=== PATIENT | male | born 1960 | race Caucasian/White ===

== ENCOUNTER 2023-06-29 15:41 | Emergency (ER) | payer OTHER, SELFPAY ==
--- NOTE | ~2023-06-29 | CT_ITS ---
EXAMINATION: CT CERVICAL SPINE WITHOUT CONTRAST CLINICAL INFORMATION: Fall. COMPARISON: None available. TECHNIQUE: Noncontrast CT of the cervical spine was performed. This CT examination was performed using dose optimization techniques as appropriate, variously including the following: *Automated exposure control *Adjustment of mA and/or kV according to patient size (this includes techniques or standardized protocols for targeted exams where dose is matched to indication/reason for exam; i.e. extremities or head) *Use of iterative reconstruction technique DLP: 516 mGy-cm FINDINGS: There is straightening of the cervical lordosis. Vertebral body heights are maintained. There is mild narrowing of the C5-C6 and C6-C7 intervertebral disc spaces. The facet joints are anatomically aligned. The C1-C2 relationship is anatomic. The dens is intact. There is no acute cervical spine fracture. The prevertebral soft tissue is normal in appearance. The paraspinal soft tissue is normal in appearance. The lung apices are clear. The thyroid gland is normal in appearance. CT/CT cervical spine wo IV con IMPRESSION: No acute osseous cervical spine abnormality. Fleischner guidelines were followed.
--- NOTE | ~2023-06-29 | CT_ITS ---
EXAMINATION: CT FACIAL BONES CLINICAL INFORMATION: Fall COMPARISON: None TECHNIQUE: Noncontrast CT scan axial sagittal and coronal, department standard protocol. This CT examination was performed using dose optimization techniques as appropriate, variously including the following: *Automated exposure control *Adjustment of mA and/or kV according to patient size (this includes techniques or standardized protocols for targeted exams where dose is matched to indication/reason for exam; i.e. extremities or head) *Use of iterative reconstruction technique FINDINGS : SKULL BASE: Included structures at skull base are normal. BONES: Comminuted fractures of the right and left nasal bones are mildly displaced. Nasal spine is intact., orbital bones, , maxillary bones, mandibles, zygomatic arches, and included cervical vertebrae are normal. ORBITS: Globes are symmetric. Orbital structures are normal. SALIVARY GLANDS: Unremarkable SINUSES: Clear CT/CT facial bones wo IV con IMPRESSION: Comminuted fractures of the right and left nasal bones are mildly displaced.
--- NOTE | ~2023-06-29 | XR_ITS ---
EXAMINATION: XR ELBOW, RIGHT CLINICAL INFORMATION: Right elbow pain, fall COMPARISON: None available. TECHNIQUE: AP, lateral, and oblique views of the right elbow. FINDINGS: There is a soft tissue abrasion along the posterior elbow with multiple small radiodense foreign bodies. The elbow joint space is maintained normal. No visible fracture or dislocation seen involving the distal femur, proximal radius and ulna. XR/XR elbow RT min 3V IMPRESSION: 1. Soft tissue abrasion along the posterior elbow with multiple small radiodense foreign bodies. 2. No visible acute fracture or dislocation seen.
--- NOTE | ~2023-06-29 | CT_ITS ---
EXAMINATION: CT HEAD WITHOUT CONTRAST CLINICAL INFORMATION: Fall. Nasal laceration. COMPARISON: None available. TECHNIQUE: Contiguous axial imaging was performed from the skull base to vertex without intravenous administration of contrast. This CT examination was performed using dose optimization techniques as appropriate, variously including the following: *Automated exposure control *Adjustment of mA and/or kV according to patient size (this includes techniques or standardized protocols for targeted exams where dose is matched to indication/reason for exam; i.e. extremities or head) *Use of iterative reconstruction technique DLP: 727 mGy-cm FINDINGS: There is no intracranial hemorrhage. There is no evidence of acute/subacute cerebral or cerebellar infarction. No midline shift, mass effect, or extra-axial fluid collection. No hydrocephalus. The orbits are normal in appearance. The calvarium is intact. Mastoid air cells are clear. There are bilateral nasal bone fractures, comminuted on the right. There is blood within the nasal cavities bilaterally. There is scattered ethmoid air cell mucosal disease. There is trace mucosal disease within the maxillary sinuses. CT/CT head/brain wo IV con IMPRESSION: No acute intracranial pathology. Bilateral nasal bone fractures, comminuted on the right.
[2023-06-29 15:48] VITALS: BP 132/78; PULSE 97; RESP 18; TEMP 36.6; O2SAT 95; BMI 36.5
--- NOTE | 2023-06-29 15:48 | ED.GENADULT ---
[facility] - General Adult General Chief complaint: Fall Stated complaint: head inj fall at work Time Seen by Provider: 06/29/23 21:37 Source: patient Mode of arrival: ambulatory History of Present Illness HPI narrative: 62-year-old male was at work and tripped over a piece of plexiglass falling and states he hit his face on the rail and his right elbow on the non skin pads of the stairs patient was brought in by work connection staff, he denies any use of blood thinners or loss of consciousness. Related Data Previous Rx's Medication Instructions Recorded amoxicillin 875 mg-potassium 1 tab PO BID 10 days #20 tabs 06/29/23 clavulanate 125 mg tablet Allergies Allergy/AdvReac Type Severity Reaction Status Date / Time No Known Allergies Allergy Verified 06/29/23 15:46 Review of Systems Review of Systems: Pertinent positives and negatives as stated in [facility] Past Medical History Source: nursing notes reviewed Physical Exam ED Vital Signs: Vital Signs - 24 hr 06/29/23 20:12 06/29/23 22:56 Temperature 98.2 F 98.2 F Pulse Rate 98 97 Respiratory Rate 18 18 Blood Pressure 144/81 H 136/88 Pulse Oximetry 99 95 Oxygen Delivery Method Room Air Room Air BMI result Body Mass Index 36.5 VITAL SIGNS: Reviewed. GENERAL: Well developed, well nourished, in no acute distress. HEAD: Normocephalic/atraumatic EYES: PERRLA, EOMI, increase swelling and ecchymosis noted periorbital to the right orbit secondary to nasal deformity EARS: Ext canals without abnormality, TMs non-bulging and non-erythematous NOSE: Nares patent bilateral, no septal hematoma, obvious deformity with subcentimeter laceration to the bridge with easy approximation OROPHARYNX: no oral lesions noted, posterior pharynx clear and non-erythematous without noted tonsillar enlargement/erythema/exudates NECK: Supple, no adenopathy LUNGS: Normal breath sounds. No adventitious sounds or accessory muscle use. SpO2<99> CARDIOVASCULAR: Regular rate and rhythm without noted murmurs ABDOMEN: Soft, non-tender, non-distended with bowel sounds. MUSCULOSKELETAL: No tenderness, deformities, or effusions noted on gross inspection. EXTREMITIES: No cyanosis, clubbing or edema. RIGHT ELBOW: No obvious deformity, there appears to be a puncture type laceration with appearance of deep into the joint area but do not suspect joint violation SKIN: Inspection of the skin reveals no rashes NEUROLOGIC: Alert and oriented x 4. Strength and sensation to light touch were grossly intact x 4. Course Course Course Narrative: RME; 62 yold male presents to the ED for falling and hitting head. patient has nasal laceration with right elbow laceration. Images ordered. Medications Administered Discontinued Medications Generic Name Dose Route Start Last Admin Trade Name Freq PRN Reason Stop Dose Admin Acetaminophen 975 mg 06/29/23 22:30 06/29/23 22:52 Acetaminophen 325 Mg Tablet PO 06/29/23 22:31 975 mg ONCE ONE Administration Amoxicillin/Clavulanate Potassium 875 mg 06/29/23 22:28 06/29/23 22:53 Amoxicillin/Potassium Clav 875 Mg Tablet PO 06/29/23 22:29 875 mg ONCE ONE Administration Diphtheria/Tetanus/Acell Pertussis 0.5 ml 06/29/23 22:35 06/29/23 22:52 Diphth,Pertus(Acell),Tet Adult 0.5 Ml Syringe IM 06/29/23 22:36 0.5 ml .ONCE ONE Administration Ibuprofen 400 mg 06/29/23 22:30 06/29/23 22:53 Ibuprofen 400 Mg Tablet PO 06/29/23 22:31 400 mg ONCE ONE Administration Procedures Laceration Laceration 1: Site: upper extremity Side (If applicable): right Size (cm): 1 Description: stellate, irregular and contaminated Depth: simple, single layer Local Anesthetic: lidocaine 2% Amount of anesthesia used (mL): 2 Pre-repair: wound explored, irrigated extensively and deep structures intact Skin layer closed with: other Size (cm): 6-0 Number of sutures: 2 Technique: simple, interrupted Medical Decision Making Medical Decision Making MDM Narrative: 62-year-old male with history and clinical presentation consistent with mechanical fall without LOC and no use of chronic anticoagulation, reviewed imaging studies which do not demonstrate any intracranial bleed or mass effect and no cervical spine fracture or subluxation, right elbow does not appear to be fractured and dislocated but there are radiopaque foreign bodies. Right elbow was copiously irrigated after being anesthetized with removal of several dark foreign bodies, possibly the nonskid material on the stairs. Otherwise, no septal hematoma and nasal bridge laceration able to be well-approximated with dressing, patient will be discharged on antibiotics as well as follow-up with Ear/Nose/Throat and Orthopedics. The elbow wound was closed loosely with 2 chromic gut sutures. Patient received combination analgesics, ice, Tdap as well as 1st antibiotics here in the emergency room. Differential Diagnosis Differential Diagnoses: The differential diagnosis associated with the presentation includes Please see the discussion above Admission/Observation Consideration of admission/observation: Escalation of care including admission/observation considered Please see the discussion above Critical Care Time Critical Care Time Critical Care Time: Yes Total Critical Care Time: 60 Attestation: I personally attest to this time spent taking care of the patient. Discharge Plan Discharge Clinical Impression: Fall, Fracture, nasal bone, open, Laceration of elbow with foreign body Patient Disposition: Home, Self-Care Instructions: Nasal Fracture (ED), Laceration (ED), Fall Prevention (ED), Cold Compress or Soak (ED) Additional Instructions: 1. Resume all home medications as prescribed. Recommend [id number] Tylenol/ibuprofen or Aleve as needed for pain control. Also recommend ice to unexposed skin to help reduce swelling and pain. 2. Complete the entire course of antibiotics as ordered. 3. Please call the below referrals, ear/nose/throat as well as Orthopedics so that you can set up appointments for re-evaluation and further outpatient management. You will need to show up to work connection tomorrow. Return to the ER for any worsening of symptoms. Prescriptions: New amoxicillin-pot clavulanate 875-125 mg tablet 1 tab PO BID 10 Days Qty: 20 0RF Referrals: [facility] [Provider Group] Subhash Marshall MD [Physician] - Isac cMcallum [Physician] - Elvis Bateman MD [Primary Care Provider] - Stand Alone Forms: Work/School Release Interventions: ED Discharge Assessment Last Done: 06/29/23 22:56 Discharge Date/Time: 06/29/23 22:58
[2023-06-29 20:12] VITALS: BP 144/81; PULSE 98; RESP 18; TEMP 36.8; O2SAT 99
[2023-06-29] MEDS: Acetaminophen 325 MG TABLET 975 MG PO (22:52)
[2023-06-29] MEDS: Diphth,Pertus(ACell),Tet Adult 0.5 ML SYRINGE IM (22:52)
[2023-06-29] MEDS: Amoxicillin/Potassium Clav 875 MG TABLET PO (22:53)
[2023-06-29] MEDS: Ibuprofen 400 MG TABLET PO (22:53)
[2023-06-29 22:56] VITALS: BP 136/88; PULSE 97; RESP 18; TEMP 36.8; O2SAT 95
== END 2023-06-29 22:58 | disposition home or self-care (01) ==
PROVIDERS: Emergency Provider Student in an Organized Health Care Education/Training Program; PCP Internal Medicine
DX: S51.011A Laceration without foreign body of right elbow, initial encounter (principal); S50.311A Abrasion of right elbow, initial encounter; S02.2XXA Fracture of nasal bones, initial encounter for closed fracture; R51.9 Headache, unspecified; M25.521 Pain in right elbow; M54.2 Cervicalgia; W01.10XA Fall on same level from slipping, tripping and stumbling with subsequent striking against unspecified object, initial encounter; Y93.9 Activity, unspecified; Y92.9 Unspecified place or not applicable; Y99.0 Civilian activity done for income or pay; Z23 Encounter for immunization
CPT/HCPCS: 12031; 70450; 70486; 72125; 73080; 90471; 90715; 99284

== ENCOUNTER 2023-07-02 11:04 | Outpatient (AMB) | payer OTHER, SELFPAY ==
--- NOTE | 2023-07-02 11:09 | MHC.OFFVIS ---
Intake Vital Signs 07/02/23 11:16 Height 5 ft 8 in Weight 240 lb BMI 36.5 Intake Visit Reasons: FC- RT Elbow Laceration WC s/p fall DOI 06/29/23 Intake Note: Julio 62-year-old male presents today for a W/C injury from 06/29/23. States while at work he tripped over a piece of plexiglass falling, he hit his face on the rail and his right elbow on the non skin pads of the stairs. Seen at work work connection who sent patient to the ED and was referred to orthopedic. Currently states his pain is better, still has swelling, redness and a small laceration that is healing. Allergies No Known Allergies Allergy (Verified 07/02/23 11:14) HPI FC- RT Elbow Laceration WC s/p fall DOI 06/29/23 HPI Details 62-year-old male who presents to the office today for evaluation of right elbow injury after he tripped over a piece of plexiglass at work and sustained a fall where he hit his face on the rail and his right elbow on the nonskin pads of the stairs, 06/29/23. He was seen at work connection who sent him to ED and he was referred to our office. He currently states he has improvement in his pain however he continues to have swelling, redness and a small laceration in his elbow which he feels is healing. [facility] Social History (Updated 07/02/23 @ 11:16 by ISAIAS Julian) Current occupational status: employed Current occupation: rt hand / supervisior at a [employer] Review of Systems Const All systems reviewed & are unremarkable except as noted in HPI and below Physical Exam Vital Signs: BMI result Body Mass Index 36.5 Extrem Other: Right elbow: He has an abrasion with no drainage. Mild erythema on the elbow which extends to the forearm. No tenderness to palpation over the forearm or elbow. He has full ROM. He is able to supinate or pronate without pain. NVI. Assessment & Plan Assessment & Plan (1) Laceration of elbow with foreign body: Code(s): S51.029A - Laceration with foreign body of unspecified elbow, initial encounter Qualifiers: Encounter type: initial encounter Laterality: right Qualified Code(s): S51.021A - Laceration with foreign body of right elbow, initial encounter (2) Bursitis of right elbow: Code(s): M70.31 - Other bursitis of elbow, right elbow Qualifiers: Elbow bursitis location: olecranon bursitis Qualified Code(s): M70.21 - Olecranon bursitis, right elbow Plan I switched his Augmentin to Bactrim and marked the redness on his forearm to see if this redness subsides or worsens. He will keep track of this for several days and see me back on Wednesday for reevaluation. I did explain to him that if his symptoms worsen such as worsening pain or redness, he can call our service or go to ED, otherwise he will see back on Wednesday as planned. Medications: New sulfamethoxazole-trimethoprim 800-160 mg (Bactrim DS) 1 tab PO BID 20 tabs 0RF suture abscess 10 days Patient Instructions: Scribed for Lurdes Vale PA-C, by Raffaele Ayala nurses medical assistants phlebotomists, on 07/02/2023 at 11:15 AM EST. ILurdes PA-C, have personally reviewed and agree with the information entered by the scribe. Coding Level of Care Code New Pt Level 3 (87181) Diagnoses Laceration of right elbow with foreign body, initial encounter S51.021A Encounter type: initial encounter Laterality: right Olecranon bursitis of right elbow M70.21 Elbow bursitis location: olecranon bursitis
[2023-07-02 11:16] VITALS: BMI 36.5
== END 2023-07-02 11:26 | disposition home or self-care (01) ==
PROVIDERS: PCP Internal Medicine; Visit Provider Physician Assistant
DX: S51.021A Laceration with foreign body of right elbow, initial encounter (principal); M70.21 Olecranon bursitis, right elbow; W01.0XXA Fall on same level from slipping, tripping and stumbling without subsequent striking against object, initial encounter; Z04.2 Encounter for examination and observation following work accident
CPT/HCPCS: 99203

== ENCOUNTER → 2023-07-02 11:04 | Outpatient (BNVA) | payer OTHER, SELFPAY | PROVIDERS: PCP Internal Medicine; Visit Provider Physician Assistant | DX: S51.021A Laceration with foreign body of right elbow, initial encounter (principal); M70.31 Other bursitis of elbow, right elbow | CPT/HCPCS: 99202; 99212 ==

== ENCOUNTER 2023-07-05 09:29 | Outpatient (AMB) | payer OTHER, SELFPAY ==
--- NOTE | 2023-07-05 09:31 | A.OFFVIS_ITS ---
Intake Intake Visit Reasons: follow up Intake Note: 62-year-old male who presents to the office today for a follow up evaluation of right elbow after he tripped over a piece of plexiglass at work and sustained a fall where he hit his face on the rail and his right elbow on the nonskin pads of the stairs, 06/29/23. He was seen at work connection who sent him to ED and he was referred to our office. Per Kadi he is being seen today for reevaluation. Pt states he thinks it looks much better than Wednesday. He states it isn't painful unless he hits it by accident. Allergies No Known Allergies Allergy (Verified 07/05/23 09:37) HPI follow up HPI Details 62-year-old male who [facility] for a follow-up of right elbow injury. He reports he has improvement in his pain unless he hits it by accident. He is doing well otherwise and has no concerns today. He has been taking the Bactrim with decreased redness of the arm. 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 He does have a trace olecranon bursitis. No redness, warmth or tenderness to palpation. He has full ROM without pain. NVI. Assessment & Plan Assessment & Plan (1) Laceration of elbow with foreign body: Code(s): S51.029A - Laceration with foreign body of unspecified elbow, initial encounter Qualifiers: Encounter type: initial encounter Laterality: right Qualified Code(s): S51.021A - Laceration with foreign body of right elbow, initial encounter (2) Bursitis of right elbow: Code(s): M70.31 - Other bursitis of elbow, right elbow Qualifiers: Elbow bursitis location: olecranon bursitis Qualified Code(s): M70.21 - Olecranon bursitis, right elbow Plan He will continue with his antibiotics as prescribed. I recommend destiney wrap for compression. I would like to see him back in 1 week, sooner if needed. He was also given a note to return to work. He will contact me if symptoms worsens. Patient Instructions: Scribed for Kadi Vale PA-C, by Raffaele Ayala medical dermatologist, on 07/05/2023 at 9:30 AM KAREN. Kadi Holman PA-C, have personally reviewed and agree with the information entered by the scribe. Coding Level of Care Code Est Pt Level 3 (43758) Diagnoses Laceration of right elbow with foreign body, initial encounter S51.021A Encounter type: initial encounter Laterality: right Olecranon bursitis of right elbow M70.21 Elbow bursitis location: olecranon bursitis
== END 2023-07-05 14:02 | disposition home or self-care (01) ==
PROVIDERS: PCP Internal Medicine; Visit Provider Physician Assistant
DX: M70.21 Olecranon bursitis, right elbow (principal); S51.021A Laceration with foreign body of right elbow, initial encounter
CPT/HCPCS: 99213

== ENCOUNTER → 2023-07-05 09:29 | Outpatient (BNVA) | payer OTHER, SELFPAY | PROVIDERS: PCP Internal Medicine; Visit Provider Physician Assistant | DX: S51.021A Laceration with foreign body of right elbow, initial encounter (principal); M70.21 Olecranon bursitis, right elbow | CPT/HCPCS: 99212 ==

== ENCOUNTER 2023-07-16 12:44 | Outpatient (AMB) | payer OTHER, SELFPAY ==
[2023-07-16 12:57] VITALS: BMI 36.5
--- NOTE | 2023-07-16 12:57 | MHC.OFFVIS ---
Intake Vital Signs 07/16/23 12:57 Height 5 ft 8 in Weight 240 lb BMI 36.5 Intake Visit Reasons: ov-RT elbow follow up Intake Note: Julio a 62 year old male who presents today for a follow up of right elbow, DOI 06/29/23. Patient reports that he is doing well, states he continues to have some tenderness however it has been manageable. He discontinue use of destiney wrap due to it wrap sticking to his sore. Allergies No Known Allergies Allergy (Verified 07/16/23 12:58) HPI ov-RT elbow follow up HPI Details 62-year-old male who returns to the office today for a follow-up of right elbow injury, 06/29/23. He continues to have mild tenderness in his elbow however the pain has been manageable. The swelling and redness has resolved. He has discontinued the use of destiney wrap as the wrap was sticking to his sore. He has no other concerns today. 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 He does have a trace olecranon bursitis. No redness, warmth or tenderness to palpation. He has full ROM without pain. NVI. Assessment & Plan Assessment & Plan (1) Bursitis of right elbow: Code(s): M70.31 - Other bursitis of elbow, right elbow Qualifiers: Elbow bursitis location: olecranon bursitis Qualified Code(s): M70.21 - Olecranon bursitis, right elbow Plan We discussed conservative management, which includes compression, NSAIDs and activity modifications. If symptoms worsen now that he is off the abx, the area becomes red, hot and painful, he should return to see me. Otherwise, PRN. Patient Instructions: Scribed for Lurdes Vale PA-C, by Raffaele Ayala medical instrument cable fabricator, on 07/16/2023 at 1:00 PM EST. Lurdes Holman PA-C, have personally reviewed and agree with the information entered by the scribe. Coding Level of Care Code Est Pt Level 3 (13614) Diagnoses Olecranon bursitis of right elbow M70.21 Elbow bursitis location: olecranon bursitis
== END 2023-07-16 13:44 | disposition home or self-care (01) ==
PROVIDERS: PCP Internal Medicine; Visit Provider Physician Assistant
DX: M70.21 Olecranon bursitis, right elbow (principal)
CPT/HCPCS: 99213

== ENCOUNTER → 2023-07-16 12:44 | Outpatient (BNVA) | payer OTHER, SELFPAY | PROVIDERS: PCP Internal Medicine; Visit Provider Physician Assistant | DX: M70.21 Olecranon bursitis, right elbow (principal) | CPT/HCPCS: 99212 ==